=== PATIENT | male | born 1970 | race Caucasian/White ===

== ENCOUNTER 2024-08-13 22:35 | Emergency (ER) | payer OTHER ==
[~2024-08-13] VITALS: Ht 182.9 cm; Wt 113.0 kg
--- NOTE | 2024-08-13 23:00 | ED.PDOC ---
HPI Comments 54 Year old male who came to ER via EMS for chest pains. 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 States he has been experiencing chest pains all day, chest pains described to be substernal, aching, pressure nonradiating, initially intermittent becoming constant the past 2 hours. Denies any other subjective complaints Chief Complaint: Chest Pain Time Seen by MD: 22:59 Primary Care Provider: NONE Reviewed Notes: Employment Programs Analyst Notes Allergies: Coded Allergies: Valproic Acid (Verified Allergy, Unknown, 08/16/10) Information Source: Patient, Emergency Med Personnel Mode of Arrival: EMS Severity: Moderate Timing: Hours Duration: Intermittent Prehospital treatment: 12 Lead EKG Location: Substernal Radiation: No Radiation Quality: Pressure, Aching Onset: With Light Exertion Past Medical History Past Medical History (Other): Ayala-Danlos syndrome, bipolar disorder, fibromyalgia Surgical History: Denies all surgeries Family History Family History: Reviewed,noncontributory to illness Social History Smoker: Cigarettes Alcohol: Denies ETOH Use Drugs: Denies Drug Use Lives In: Home Constitutional: denies: chills, diaphoresis, fatigue, fever, malaise, sweats, weakness, others EENTM: denies: blurred vision, double vision, ear bleeding, ear discharge, ear drainage, ear pain, ear ringing, eye pain, eye redness, hearing loss, mouth pain, mouth swelling, nasal discharge, nose bleeding, nose congestion, nose pain, photophobia, tearing, throat pain, throat swelling, voice changes, others Respiratory: denies: cough, hemoptysis, orthopnea, SOB at rest, shortness of breath, SOB with excertion, stridor, wheezing, others Cardiovascular: reports: chest pain; denies: dizzy spells, diaphoresis, Dyspnea on exertion, edema, irregular heart beat, left arm pain, lightheadedness, palpitations, PND, syncope, others Gastrointestinal: denies: abdomen distended, abdominal pain, blood streaked bowels, constipated, diarrhea, dysphagia, difficulty swallowing, hematemesis, melena, nausea, poor appetite, poor fluid intake, rectal bleeding, rectal pain, vomiting, others Genitourinary: denies: burning, dysuria, flank pain, frequency, hematuria, incontinence, penile discharge, penile sore, pain, testicle pain, testicle swelling, urgency, others Neurological: denies: dizziness, fainting, headache, left sided numbness, left sided weakness, numbness, paresthesia, pre-existing deficit, right sided numbness, right sided weakness, seizure, speech problems, tingling, tremors, weakness, others Musculoskeletal: denies: back pain, gout, joint pain, joint swelling, muscle pain, muscle stiffness, neck pain, others Integumetry: denies: bruises, change in color, change in hair/nails, dryness, laceration, lesions, lumps, rash, wounds, others Allergic/Immunocompromised: denies: Difficulty Healing, Frequent Infections, Hives, Itching, others Hematologic/Lymphatic: denies: anemia, blood clots, easy bleeding, easy bruising, swollen glands, others Endocrine: denies: excessive hunger, excessive sweating, excessive thirst, excessive urination, flushing, intolerance to cold, intolerance to heat, unexplained weight gain, unexplained weight loss, others Psychiatric: denies: anxiety, bipolar disorder, depression, hopeless, panic disorder, schizophrenia, sleepless, suicidal, others Physical Exam General Appearance: No Apparent Distress, Normal HEENT: Normal ENT Inspection, Pharynx Normal, TMs Normal Neck: Full Range of Motion, Non-Tender, Normal, Normal Inspection Respiratory: Chest Non-Tender, Lungs Clear, No Accessory Muscle Use, No Respiratory Distress, Normal Breath Sounds Cardiovascular: No Edema, No JVD, No Murmur, No Gallop, Normal Peripheral Pulses, Regular Rate/Rhythm Breast Exam: Deferred Gastrointestinal: No Organomegaly, Non Tender, No Pulsatile Mass, Normal Bowel Sounds, Soft Genitalia: Deferred Pelvic: Deferred Rectal: Deferred Extremities: No calf tenderness, Normal capillary refill, Normal inspection, Normal range of motion, Non-tender, No pedal edema Musculoskeletal : Apperance: Normal Neurologic: Alert, mechanic general operational test II-XII nml as Tested, No Motor Deficits, Normal Affect, Normal Mood, No Sensory Deficits Cerebellar Function: Normal Reflexes: Normal Skin: Dry, Normal Color, Warm Lymphatic: No Adenopathy Was a procedure done? Was a procedure done?: No CP Differential Dx Differential Diagnosis: Angina, Anxiety / Panic Attack, Hyperventilation Differential Diagnosis: Angina, Chest Wall Pain, Costochondritis, Esophageal reflux/spasm, Gastritis, Myocardial Infarction, Pneumonia X-Ray, Labs, Meds, VS Vital Signs Date Time Temp Pulse Resp B/P (MAP) Pulse Ox O2 Delivery O2 Flow Rate FiO2 08/13/24 23:34 109 08/13/24 22:39 111 08/13/24 22:39 98.7 104 16 111/70 (84) 98 98.7 Lab Test 08/13/24 23:44 08/13/24 22:44 Range/Units Troponin I High Sensitivity Pending < 3 L </=54 ng/L White Blood Count 11.2 H 4.4-10.8 10^3/uL Red Blood Count 5.86 4.5-5.90 10^6/uL Hemoglobin 14.1 13.5-17.5 g/dL Hematocrit 44.7 41.0-53.0 % Mean Corpuscular Volume 76.4 L 80.0-100.0 fL Mean Corpuscular Hemoglobin 24.1 L 28.0-32.0 pg Mean Corpuscular Hemoglobin Concent 31.6 L 32.0-36.0 g/dL Red Cell Distribution Width 16.4 H 11.8-14.3 % Platelet Count 198 140-450 10^3/uL Mean Platelet Volume 10.0 6.9-10.8 fL Neutrophils (%) (Auto) 68.5 37.0-80.0 % Lymphocytes (%) (Auto) 21.9 10.0-50.0 % Monocytes (%) (Auto) 7.3 0.0-12.0 % Eosinophils (%) (Auto) 1.6 0.0-7.0 % Basophils (%) (Auto) 0.7 0.0-2.0 % Neutrophils # (Auto) 7.7 1.6-8.6 10 ^3/uL Lymphocytes # (Auto) 2.5 0.4-5.4 10 ^3/uL Monocytes # (Auto) 0.8 0-1.3 10 ^3/uL Eosinophils # (Auto) 0.2 0-0.8 10 ^3/uL Basophils # (Auto) 0.1 0-0.2 10 ^3/uL Nucleated Red Blood Cells 0.1 % Sodium Level 143 136-145 mmol/L Potassium Level 4.0 3.5-5.1 mmol/L Chloride Level 108 H 98-107 mmol/L Carbon Dioxide Level 26 20-31 mmol/L Anion Gap 9 5-15 Blood Urea Nitrogen 16 9-23 mg/dL Creatinine 1.38 H 0.700-1.30 mg/dL Glomerular Filtration Rate Calc 61 >90 mL/min BUN/Creatinine Ratio 11.6 10.0-20.0 Serum Glucose 126 H 74-106 mg/dL Calcium Level 9.8 8.7-10.4 mg/dL Time of 1ST Reevaluation: 22:55 Reevaluation 1ST: Unchanged Patient Education/Counseling: Diagnosis, Treatment Family Education/Counseling: No Family Present Departure 1 Departure Time of Disposition: 00:24 (Patient presented with chest pain that was concerning for possible STEMI, ACS, PE, Pneumonia, Muscle Strain, COPD, Dissection. Data: 1. I ordered and reviewed the result of at least 3 labs including a CBC, BMP, and Troponin. 2. I independently interpreted the following tests: EKG which shows sinus arrhythmia and Chest X-ray which shows benign chest.Risk:This patient has a high risk of morbidity due to further diagnostic testing or treatment and may suffer from an acute cardiac or respiratory disorder. Workup reveals concern for ACS and patient should be admitted for further workup and possible expert consultation. ) Impression: Primary Impression: Acute chest pain Disposition: 09 ADMITTED INPATIENT Admit to: Med Surg Condition: Serious Critical Care Note Critical Care Time?: Yes (35 min-critical care time only) Critical care comment: Acute chest pain Authorized and Performed by: Ryan Car MD Total critical care time: Approximately 37 minutes Due to a high probability of clinically significant, life threatening deterioration, the patient required my highest level of preparedness to intervene emergently and I personally spent this critical care time directly and personally managing the patient. This critical care time included obtaining a h istory; examining the patient; pulse oximetry; ordering and review of studies; arranging urgent treatment with development of a management plan; evaluation of patient's response to treatment; frequent reassessment; and, discussions with other providers. This critical care time was performed to assess and manage the high probability of imminent, life-threatening deterioration that could result in multi-organ failure. It was exclusive of separately billable procedures and treating other patients and teaching time. Please see my other sections and the rest of the note for further information on patient assessment and treatment. Stability Stability form required: No Heart Score Heart Score: Heart Score Response (Comments) Value History Moderate Suspicious 1 EKG Repolarization Disturb 1 Age 45-64 1 Risk Factors 1 or 2 risk factors 1 Troponin Normal limit 0 Total 4 I personally scribed for RYAN CAR MD ([email or web address]) on 08/13/24 at 23:00. Electronically submitted by Christiano Bautista ([facility]). RYAN CAR MD August 13, 2024 23:00
[2024-08-13 23:54] LABS: Basophils # (auto) 0.1 10 ^3/uL (0-0.2); Basophils % (auto) 0.7 % (0.0-2.0); Eosinophils # (auto) 0.2 10 ^3/uL (0-0.8); Neutrophils # (auto) 7.7 10 ^3/uL (1.6-8.6); Nucleated Red Blood Cells % 0.1 %; Platelet Count (auto) 198 10^3/uL (140-450)
[2024-08-13 23:56] LABS: Eosinophils % (auto) 1.6 % (0.0-7.0); Hematocrit 44.7 % (41.0-53.0); Hemoglobin 14.1 g/dL (13.5-17.5); Lymphocytes # (auto) 2.5 10 ^3/uL (0.4-5.4); Lymphocytes % (auto) 21.9 % (10.0-50.0); Mean Corpuscular Hemoglobin 24.1 pg (28.0-32.0); Mean Corpuscular Hgb Conc. 31.6 g/dL (32.0-36.0); Mean Corpuscular Volume 76.4 fL (80.0-100.0); Monocytes # (auto) 0.8 10 ^3/uL (0-1.3); Monocytes % (auto) 7.3 % (0.0-12.0); Neutrophils % (auto) 68.5 % (37.0-80.0); Red Blood Cells 5.86 10^6/uL (4.5-5.90); Red Cell Distribution Width 16.4 % (11.8-14.3); White Blood Cell 11.2 10^3/uL (4.4-10.8)
[2024-08-14 00:01] LABS: Sodium 143 mmol/L (136-145)
[2024-08-14 00:02] LABS: Anion Gap 9 (5-15); Calcium 9.8 mg/dL (8.7-10.4); Carbon Dioxide 26 mmol/L (20-31)
[2024-08-14 00:07] LABS: BUN/Creatinine Ratio 11.6 (10.0-20.0); Blood Urea Nitrogen 16 mg/dL (9-23)
[2024-08-14 00:14] LABS: Chloride 108 mmol/L (98-107); Glucose 126 mg/dL (74-106)
--- NOTE | 2024-08-14 00:21 | DVH ---
CHEST RADIOGRAPH Indication: chest pain Technique: Single frontal view of the chest was obtained COMPARISON: None FINDINGS: Lines and Tubes: None Lungs: Clear Pleura: No effusion. No pneumothorax. Cardiomediastinal contours: Unremarkable Bones: Unremarkable IMPRESSION: 1. No acute disease.
--- NOTE | 2024-08-14 03:07 | ECG ---
[facility] Test Date: 2024-08-13 Test Time: 23:34:45 Pat Name: JERMAN SAMUEL Department: ED Room: Gender: M Duct Layer Helper: carmelo : 1970 Requested By: RYAN DAVIS Order Number: [id number] Reading MD: Measurements Intervals [place] Rate: 109 P: 38 IA: 112 QRS: 36 QRSD: 89 T: -15 QT: 338 QTc: 456 Interpretive Statements Sinus tachycardia Supraventricular bigeminy Borderline short IA interval Probable left atrial enlargement Borderline T abnormalities, inferior leads Please click the below link to view image of tracing.
--- NOTE | 2024-08-14 03:07 | ECG ---
[facility] Test Date: 2024-08-14 Test Time: 01:25:33 Pat Name: JERMAN SAMUEL Department: ED Room: Gender: M Director Of Integrated Marketing: carmelo : 1970 Requested By: RYAN DAVIS Order Number: [id number] Reading MD: Measurements Intervals [place] Rate: 80 P: 42 SC: 123 QRS: 32 QRSD: 92 T: -28 QT: 362 QTc: 418 Interpretive Statements Sinus rhythm Borderline T abnormalities, diffuse leads Please click the below link to view image of tracing.
[2024-08-14] MEDS ORDERED: LABETALOL HCL 20 MG/4 ML VL IV PRN (04:00)
[2024-08-14] MEDS: MORPHINE SULFATE INJ 2 MG/ml SYRG IV PRN (04:59)
[2024-08-14] MEDS: IOHEXOL 350 MG/ML 100ML IJ ONE (04:59)
[2024-08-14] MEDS: SODIUM CHLORIDE 0.9% 500 ML IV ONE (05:11)
--- NOTE | 2024-08-14 05:14 | DVH ---
CTA Chest with intravenous contrast INDICATION: Rule out aortic dissection/PE with history of ehler danlos COMPARISON: None TECHNIQUE: Multidetector spiral CTA of the chest was performed of the chest with intravenous contrast . PULMONARY ANGIOGRAPHY PROTOCOL was utilized using a bolus-tracking technique centered on the main p ulmonary artery. Axial, coronal and sagittal multiplanar and MIP reformats were performed. Radiation Dose : 1. Chest: CTDI volume is 72.77 mGy. Dose-length product is 2149.49 mGy*cm The dose indicators for CT are the volume Computed Tomography (CT) Dose Index (CTDIvol) and the Dose Length Product (DLP), and are measured in units of mGy and mGy-cm, respectively. These indicators are not patient dose, but values generated from the CT scanner acquisition factors. The report includes radiation exposure data for exposures received during this examination. Findings: Pulmonary artery: No pulmonary embolism The main pulmonary artery measures 2.9 cm and the ascending aorta measures 3.3 cm. Lower neck: Normal thyroid. Lungs: No focal consolidation, pleural effusion or pneumothorax. Heart/Vascular Structures: Normal heart size. No pericardial effusion. Lymph Nodes: No adenopathy Pleura: No pleural effusion or significant pneumothorax. Musculoskeletal: No acute osseous abnormality. Soft tissues: Normal. Upper abdomen: Limited portions of the upper abdomen are unremarkable status post cholecystectomy. Ex ophytic posterior left midpole renal cyst measures 2.0 cm. IMPRESSION: 1. No pulmonary embolism. 2. No acute thoracic finding.
[2024-08-14 08:18] VITALS: PULSE 72; RESP 16; TEMP 97.8; O2SAT 97
[2024-08-14 12:05] LABS: Urine Bacteria FEW /hpf (None Seen); Urine Blood Negative /uL (Negative); Urine Clarity Clear (Clear); Urine Color Yellow (Yellow); Urine Mucus FEW (None Seen); Urine Protein, UAD TRACE (Negative); Urine Squamous Epithelial Cell FEW /hpf (<5); Urine Urobilinogen Normal (Negative); Urine WBC 1 /HPF (0-3); Urine pH 5.5 (5.0-9.0)
[2024-08-14 12:08] LABS: Urine Specific Gravity > 1.050 (1.001-1.035)
[2024-08-14 13:41] VITALS: BP 135/79; PULSE 78; RESP 19; O2SAT 97
--- NOTE | 2024-08-14 16:54 | DVHDS2 ---
Discharge Summary Date of Admission Date of Discharge: August 14, 2024 Labs/Diagnostic Data: Laboratory Results Test 08/14/24 11:46 08/14/24 01:38 08/13/24 22:44 Urine Color Yellow (Yellow) Urine Clarity Clear (Clear) Urine pH 5.5 (5.0-9.0) Urine Specific [place] > 1.050 (1.001-1.035) Urine Protein Trace (Negative) Urine Ketones Negative (Negative) Urine Blood Negative /uL (Negative) Urine Nitrite Negative (Negative) Urine Bilirubin Negative (Negative) Urine Urobilinogen Normal mg/dL (Negative) Urine Leukocyte Esterase Negative /uL (Negative) Urine RBC 2 /hpf (0 - 3) Urine Microscopic WBC 1 /HPF (0-3) Urine Squamous Epithelial Cells Few /hpf (<5) Urine Bacteria Few /hpf (None Seen) Urine Mucus Few (None Seen) Urine Glucose Trace mg/dL (Normal) Troponin I High Sensitivity 3 ng/L (</=54) White Blood Count 11.2 10^3/uL (4.4-10.8) Red Blood Count 5.86 10^6/uL (4.5-5.90) Hemoglobin 14.1 g/dL (13.5-17.5) Hematocrit 44.7 % (41.0-53.0) Mean Corpuscular Volume 76.4 fL (80.0-100.0) Mean Corpuscular Hemoglobin 24.1 pg (28.0-32.0) Mean Corpuscular Hemoglobin Concent 31.6 g/dL (32.0-36.0) Red Cell Distribution Width 16.4 % (11.8-14.3) Platelet Count 198 10^3/uL (140-450) Mean Platelet Volume 10.0 fL (6.9-10.8) Neutrophils (%) (Auto) 68.5 % (37.0-80.0) Lymphocytes (%) (Auto) 21.9 % (10.0-50.0) Monocytes (%) (Auto) 7.3 % (0.0-12.0) Eosinophils (%) (Auto) 1.6 % (0.0-7.0) Basophils (%) (Auto) 0.7 % (0.0-2.0) Neutrophils # (Auto) 7.7 10 ^3/uL (1.6-8.6) Lymphocytes # (Auto) 2.5 10 ^3/uL (0.4-5.4) Monocytes # (Auto) 0.8 10 ^3/uL (0-1.3) Eosinophils # (Auto) 0.2 10 ^3/uL (0-0.8) Basophils # (Auto) 0.1 10 ^3/uL (0-0.2) Nucleated Red Blood Cells 0.1 % Sodium Level 143 mmol/L (136-145) Potassium Level 4.0 mmol/L (3.5-5.1) Chloride Level 108 mmol/L (98-107) Carbon Dioxide Level 26 mmol/L (20-31) Anion Gap 9 (5-15) Blood Urea Nitrogen 16 mg/dL (9-23) Creatinine 1.38 mg/dL (0.700-1.30) Glomerular Filtration Rate Calc 61 mL/min (>90) BUN/Creatinine Ratio 11.6 (10.0-20.0) Serum Glucose 126 mg/dL (74-106) Calcium Level 9.8 mg/dL (8.7-10.4) Other Laboratory Tests 08/13/24 22:44 Brief Hx & Hospital Course: Patient is a 54M with PMH of Alvin, Type 2DM, alcohol dependence who presented with complaints of chest pain for the past several days. He notes the pain starts from his right finger tips and then travels to the center of his chest, in that sequence. He notes the pain comes on at the same time every night at around 8PM when he's doing dishes and trying to manage his children. He notes he has experienced this pain in the past over many years and is usually related to his anxiety. He notes that it is not consistent with exertion, and denies a history of ME, stents, or cardiac surgery. He notes that recently it's become more frequent with his insulin changes. He has checked his glucose levels during these episodes he notes his glucose ranges in 30-40 and he corrects it with some juice. He notes this resolves his arm/chest pain. In the ER, patient was noted to be hypertensive to systolic of 200's but corrected with labetolol. CBC was notable for leukocytosis of 11.2 without any signs of fever. BMP was notable for CAMILA with BUN/Cr of 16/1.38. Patient was given 500c NS bolus. Troponin was noted to be non-elevated x3. EKG showed sinus rhythm. CTA of the chest was done to rule out aortic dissection given history of Ehler Danlos. It was within normal limits and no PE noted. Patient notes he smokes 3-4 packs of cigarrettes per day since the age of 12. He was counseled on the importance of cessation. Patient was monitored for several hours without changes in vitals or decompensation. Patient's presentation likely consistent with hypoglycemic episodes. He is to be referred urgently to endocrine. He was counseled on how to adjust his insulin and treat hypoglycemic episodes. Patient has an appointment with this sample color maker. He is to follow up. Overall, patient discharged in stable condition. Patient given ER return precautions. Neal to arrange appointments. Condition at Discharge: Good Final Diagnosis/Problems List Hypoglycemic Episodes Secondary Diagnosis: Ehler Danlos Type 2 DM Tobacco Dependence Discharge Disposition: Home Discharge Instruct/Medications Diet: Consistent carbohydrate Activity: No Restrictions, As Tolerated Follow Up/Referral: Follow up with endocrinology. Follow up with cardiology. Medications: No changes to medications. Discharge Statement: "Patient was advised to return to the ER or call 911 if any headaches, dizziness, shortness of breath, chest pain, abdominal pain, bleeding, fevers, or worsening of medical condition. Patient was counseled about treatment plan, medications, possible side effects, patientverbalized understanding. All questions were answered to the best of my ability. This discharge took greater then 30 minutes in planning, reviewing documentation, counseling the patient, and discussing with other team members." ASSESSMENT ASSESSMENT Assessment Hypoglycemic Episodes SHER WASHINGTON DO August 14, 2024 16:54
--- NOTE | 2024-08-15 10:57 | ECG ---
[facility] Test Date: 2024-08-13 Test Time: 22:39:39 Pat Name: JERMAN SAMUEL Department: ED Room: Gender: M Link Trainer Teacher: carmelo : 1970 Requested By: RYAN DAVIS Order Number: [id number] Reading MD: Measurements Intervals [place] Rate: 111 P: 25 SC: 117 QRS: 39 QRSD: 87 T: -33 QT: 330 QTc: 449 Interpretive Statements Sinus tachycardia Supraventricular bigeminy Borderline short SC interval Probable left atrial enlargement Nonspecific T abnormalities, inferior leads Please click the below link to view image of tracing.
== END 2024-08-14 13:45 | disposition home or self-care (01) ==
LOC: EDBD 22:35 → ER 22:39
DX: R07.89 Other chest pain (principal); F17.210 Nicotine dependence, cigarettes, uncomplicated; F31.9 Bipolar disorder, unspecified
CPT/HCPCS: 36415; 71045; 71275; 80048; 81001; 84484; 85025; 93005; 96374; 99285; J2270; Q9967